=== PATIENT | female | born 1960 | race African-American/Black ===

== ENCOUNTER 2016-12-23 19:26 | Emergency (ER) | payer SELFPAY ==
[2016-12-23 19:31] VITALS: BP 142/61; PULSE 99; RESP 16; TEMP 98.1; O2SAT 96
--- NOTE | 2016-12-23 20:07 | PD ---
HPI Chief Complaint: Cold / Flu Symptoms Time Seen by Provider: 19:56 Travel History International Travel<30 days: No Contact w/Intl Traveler<30days: No Traveled to known affect area: No History of Present Illness HPI PATIENT HAS NO PREVIOUS PCP AND THEREFORE GIVES NO PREVIOUS PMHX.....OVER PAST 2 DAYS HAS HAD C/O COUGH, PROD OF GREEN SPUTUM, SOME HEAD PAIN AND BODY ACHES WELL. DENIES CP/ABD PAIN. PFSH Social History Tobacco Use: No Allergies-Medications (Allergen,Severity, Reaction): Coded Allergies: No Known Allergies (Unverified , 12/23/16) Reported Meds & Prescriptions Reported Meds & Active Scripts Active Medrol Dosepak (Methylprednisolone) 4 Mg Dspk 4 Mg PO DIRECTED Per Pharmacist direction Fioricet (Ankqvurmhm-Xoovdaulrmevt-Eptplhac) 50-300-40 Mg Cap 1 Cap PO Q4H PRN Ciprofloxacin (Ciprofloxacin HCl) 500 Mg Tab 500 Mg PO BID Proventil Hfa 6.7 GM Inh (Albuterol Sulfate) 90 Mcg/Act Aer 1 Puff INH Q4H PRN Review of Systems General / Constitutional: Positive: Fever (SUBJECTIVE, PT HAS N0T ACTUALLY MEASURED HER TEMPERATURE) HENT: Positive: Headaches, Rhinorrhea Respiratory: Positive: Cough Physical Exam Narrative GENERAL: SKIN: Warm and dry. HEAD: Atraumatic. Normocephalic. EYES: Pupils equal and round. No scleral icterus. No injection or drainage. ENT: No nasal bleeding BUT CLEAR RHINORRHEA. Mucous membranes pink and moist. NECK: Trachea midline. No JVD. CARDIOVASCULAR: Regular rate and rhythm. RESPIRATORY: No accessory muscle use. MILD SCATTERED WHEEZES NOTED, BUT NL PULSE OX AND GOOD TV..Breath sounds equal bilaterally. GASTROINTESTINAL: Abdomen soft, non-tender, nondistended. MUSCULOSKELETAL: Extremities without clubbing, cyanosis, or edema. No obvious deformities. NEUROLOGICAL: Awake and alert. No obvious cranial nerve deficits. Motor grossly within normal limits. Five out of 5 muscle strength in the arms and legs. Normal speech. PSYCHIATRIC: Appropriate mood and affect; insight and judgment normal. Data Data Last Documented VS Vital Signs Date Time Temp Pulse Resp B/P Pulse Ox O2 Delivery O2 Flow Rate FiO2 12/23/16 19:31 98.1 99 16 142/61 96 Room Air Orders Urinalysis - C+S If Indicated (12/23/16 19:57) Group A Rapid Strep Screen (12/23/16 19:57) Influenzae A/B Antigen (12/23/16 19:57) Ct Brain W/O Iv Contrast(Rout) (12/23/16 19:57) Orthostatic Vital Signs (12/23/16 19:57) Blood Glucose (12/23/16 19:57) Chest, Single Ap (12/23/16 20:02) Albuterol-Ipratropium Neb (Duoneb Neb) (12/23/16 20:30) Dexamethasone Inj (Decadron Inj) (12/23/16 20:30) Azithromycin (Zithromax) (12/23/16 20:30) Urine Culture (12/23/16 20:10) Strep Culture (Group A) (12/23/16 20:10) Labs Laboratory Tests Test 12/23/16 20:10 Urine Color YELLOW Urine Turbidity HAZY Urine pH 6.0 Urine Specific [place] 1.029 Urine Protein 100 mg/dL Urine Glucose (UA) NEG mg/dL Urine Ketones 40 mg/dL Urine Occult Blood MOD Urine Nitrite NEG Urine Bilirubin NEG Urine Urobilinogen 2.0 MG/DL Urine Leukocyte Esterase LARGE Urine RBC 13 /hpf Urine WBC 125 /hpf Urine Squamous Epithelial 2 /hpf Cells Urine Granular Casts 1 /lpf Urine Mucus FEW /lpf Microscopic Urinalysis Comment CULTURE INDICATED MDM Medical Decision Making Medical Screen Exam Complete: Yes Emergency Medical Condition: Yes Medical Record Reviewed: Yes Differential Diagnosis HYPERGLYCEMIA V DEHYDRATION VS PNA VS URI VS FLU Narrative Course PATIENT'S GLUCOSE WAS 97, CT HEAD SHOWED NO ICH, ORTHOSTATIC NEGATIVE, CXR C/W COPD CHANGES BUT WITHOUT CONSOLIDATION. AWAITING FLU RESULTS. GIVEN NEB, STEROID AND PO ABX WHILE AWAITING RESULTS....FLU AND STREP NEG...WILL D/C HOME ON PO ABX, STEROID AND ALBUTEROL. Diagnosis Primary Impression: ACUTE BRONCHITIS Additional Impression: UTI Patient Instructions: Acute Bronchitis (ED), General Instructions, Urinary Tract Infection in Women (ED) Scripts Methylprednisolone Dosepak (Medrol Dosepak)4 Mg Dspk4 Mg PO DIRECTED #1 DSPK Per Pharmacist direction Prov:Aristeo Shell MD 12/23/16 Ypfkbpwjnr-Zdppybrpxbymp-Ziyszfza (Fioricet)50-300-40 Mg Cap1 Cap PO Q4H PRN ( HEADACHE) #20 CAP Prov:Aristeo Shell MD 12/23/16 Ciprofloxacin 500 Mg Ezf032 Mg PO BID #14 TAB Prov:Aristeo Shell MD 12/23/16 Albuterol 6.7 GM Inh (Proventil Hfa 6.7 GM Inh)90 Mcg/Act Aer1 Puff INH Q4H PRN (SHORTNESS OF BREATH) #1 INHALER Prov:Aristeo Shell MD 12/23/16 Disposition: 01 DISCHARGE HOME Condition: Stable Aristeo Shell MD Dec 23, 2016 20:07
[2016-12-23] MEDS ORDERED: RESP: ALBUTEROL 2.5 MG/IPRATROPIUM 0.5 MG NEB (SCH) INH ONE (20:30)
[2016-12-23] MEDS ORDERED: DEXAMETHASONE SOD PHOS 4 MG/ML VIAL IM ONE (20:30)
[2016-12-23] MEDS ORDERED: AZITHROMYCIN 250 MG TAB PO ONE (20:30)
[2016-12-23 20:36] LABS: BLOOD, URINE MOD (NEG); GLUCOSE,URINE NEG (NEG); GRANULAR CAST, URINE 1 /lpf; KETONE, URINE 40 mg/dL (NEG); MUCUS URINE FEW /lpf (OCC); NITRITE,URINE NEG (NEG); SQUAMOUS EPITHELIAL CELL URINE 2 /hpf (0-5); URINE COLOR YELLOW (YELLW/STRAW)
[2016-12-23 20:37] LABS: COMMENT (UR) CULTURE INDICATED; CULTURE IF INDICATED CULTURE INDICATED
--- NOTE | 2016-12-23 20:38 | RADRPT ---
EXAM DATE/TIME: 12/23/2016 20:16 [facility] COMPARISON: No previous studies available for comparison. INDICATIONS : Cephalgia with numbness to feet. RADIATION DOSE: 28.71 CTDIvol (mGy) MEDICAL HISTORY : None SURGICAL HISTORY : None. ENCOUNTER: Initial ACUITY: 1 day PAIN SCALE: 0/10 LOCATION: cranial TECHNIQUE: Multiple contiguous axial images were obtained of the head. Using automated exposure control and adj ustment of the mA and/or kV according to patient size, radiation dose was kept as low as reasonably a chievable to obtain optimal diagnostic quality images. DICOM format image data is available electro nically for review and comparison. FINDINGS: CEREBRUM: The ventricles are normal for age. No evidence of midline shift, mass lesion, hemorrhage or acute in farction. No extra-axial fluid collections are seen. POSTERIOR FOSSA: The cerebellum and brainstem are intact. The 4th ventricle is midline. The cerebellopontine angle i s unremarkable. EXTRACRANIAL: The visualized portion of the orbits is intact. SKULL: The calvaria is intact. No evidence of skull fracture. CONCLUSION: Unremarkable noncontrast CT. Collin Blum MD on December 23, 2016 at 20:36 Board Certified Radiologist. This report was verified electronically.
--- NOTE | 2016-12-23 20:38 | RADRPT ---
EXAM DATE/TIME: 12/23/2016 20:22 [facility] COMPARISON: No previous studies available for comparison. INDICATIONS : nausea, vomiting, headache and numbness to feet MEDICAL HISTORY : None. SURGICAL HISTORY : None. ENCOUNTER: Initial ACUITY: 1 day PAIN SCORE: Non-responsive. LOCATION: Bilateral chest FINDINGS: A single view of the chest demonstrates the lungs to be symmetrically aerated without evidence of mas s, infiltrate or effusion. The cardiomediastinal contours are unremarkable. Osseous structures are intact. CONCLUSION: No acute disease. Collin Blum MD on December 23, 2016 at 20:36 Board Certified Radiologist. This report was verified electronically.
[2016-12-23] MEDS ORDERED: BUTA1CAP PO (20:49)
[2016-12-23] MEDS ORDERED: ALBU6.7H INH (20:49)
[2016-12-23] MEDS ORDERED: MEDR4PAK PO (20:49)
[2016-12-23] MEDS ORDERED: CIPR500T2 PO (20:49)
== END 2016-12-23 21:34 | disposition home or self-care (01) ==
LOC: NEPC 19:26
DX: J20.9 Acute bronchitis, unspecified (principal); N39.0 Urinary tract infection, site not specified
CPT/HCPCS: 70450; 71010; 81001; 87081; 87086; 87804; 87880; 94664; 96372; 99285; J1100